=== PATIENT | female | born 1960 | race Two or more races ===

== ENCOUNTER → 2024-06-12 | Outpatient (CLI) | payer MEDICARE, MEDICAID, SELFPAY ==
[2024-06-12 17:54] LABS: HCG Qualitative,Urine Negative
[2024-06-12 18:06] LABS: Anion Gap 8 (7-16); BUN/Creatinine Ratio 25 Ratio (12-20); Blood Urea Nitrogen 20 mg/dL (9-23); Calcium 10.2 mg/dL (8.3-10.6); Carbon Dioxide 27.5 mMol/L (20.0-31.0); Chloride 102 mMol/L (98-107); Creatinine (Component) 0.8 mg/dL (0.6-1.3); Glucose 117 mg/dL (74-106); Osmolality,Calculated 277 (275-295); Potassium 3.7 mMol/L (3.4-5.1); Sodium 137 mMol/L (136-145); eGFR > 60 See Note
== END | disposition home or self-care (01) ==
LOC: COPL 16:17
PROVIDERS: PCP Physician Assistant; Referring Provider Physician Assistant; Visit Provider Physician Assistant
DX: Z32.00 Encounter for pregnancy test, result unknown (principal)
CPT/HCPCS: 36415; 80048; 81025

== ENCOUNTER 2024-07-11 06:30 | Day surgery (SDC) | payer MEDICARE, MEDICAID, SELFPAY ==
[2024-07-11] VITALS (11 sets, daily range): BP systolic 128–199; BP diastolic 61–86; PULSE 50–67; RESP 11–22; TEMP 36.2–36.8; O2SAT 93–99; BMI 25.9
[2024-07-11] MEDS: fentaNYL CIT INJ 50 mCg/ML AMP 2ML (ASD USE ONLY) IV (07:41)
[2024-07-11] MEDS: DiphenhydrAMINE INJ 50 MG/ML VIAL 25 MG IV (07:41)
[2024-07-11] MEDS: MIDAZOLAM INJ 1 MG/ML VIAL 2 ML (ASD USE ONLY) 2 MG IV (07:42)
== END 2024-07-11 08:30 | disposition home or self-care (01) ==
PROVIDERS: PCP Physician Assistant; Referring Provider Surgery; Visit Provider Surgery
PROC: 0DBE8ZX Excision of Large Intestine, Via Natural or Artificial Opening Endoscopic, Diagnostic (ICD-10-PCS; CPT 45380; principal; 2024-07-11 07:30)
DX: K64.1 Second degree hemorrhoids (principal); K57.31 Diverticulosis of large intestine without perforation or abscess with bleeding
CPT/HCPCS: 45378; J1200; J2250; J3010

== ENCOUNTER 2024-08-09 07:55 | Day surgery (SDC) | payer MEDICARE, MEDICAID, SELFPAY ==
--- NOTE | 2024-08-08 07:00 | EKG_ITS ---
[facility] Test Date: 2024-08-08 Pat Name: AYSE BROWN Department: Room: - Gender: Female Reception Specialist: RT STUDENT : 1960 Requested By: Indu Sanchez Order Number: [id number] Reading MD: Indu Sanchez Measurements Intervals Burns Rate: 56 P: -35 UT: 196 QRS: 23 QRSD: 90 T: 22 QT: 419 QTc: 407 Interpretive Statements SINUS BRADYCARDIA Compared to ECG 07/08/2020 15:51:47 Sinus rhythm no longer present /store/S0/[id number].pdf
[2024-08-08 07:19] VITALS: BMI 25.7
[2024-08-08 08:52] LABS: Basophils # (Auto) 0.1 Thou/mm3 (0.0-0.2); Basophils % (Auto) 2 % (0-2.5); Eosinophils # (Auto) 0.3 Thou/mm3 (0.0-0.5); Eosinophils % (Auto) 4 % (0-10); Hematocrit 43.1 % (36.0-46.0); Hemoglobin 14.4 g/dL (12.0-16.0); Immature Granulocytes % (Auto) 1 % (0-0); Immature Granulocytes Auto 0.05 Thou/mm3 (0.00-0.00); Lymphocytes # (Auto) 2.9 Thou/mm3 (1.0-4.8); Lymphocytes % (Auto) 38 % (10-50); Mean Corpuscular HGB Conc 33.4 g/dl (31.0-37.0); Mean Corpuscular Hemoglobin 28.3 pg (25.0-35.0); Mean Corpuscular Volume 85 fL (80-100); Monocytes # (Auto) 0.8 Thou/mm3 (0.0-0.8); Monocytes % (Auto) 11 % (0-12); Neutrophils # (Auto) 3.5 Thou/mm3 (1.8-7.7); Neutrophils % (Auto) 46 % (37-80); Nucleated Red Blood Cell % 0 /100 WBC (0); Platelet Count 260 Thou/mm3 (140-440); RDW Standard Deviation 44.2 fL (36.4-46.3); Red Blood Count 5.08 Miln/mm3 (4.00-5.20); White Blood Count 7.7 Thou/mm3 (3.6-11.0)
[2024-08-08 09:06] LABS: Alanine Aminotransferase 14 U/L (10-49); Albumin, Serum 4.9 gm/dL (3.4-4.8); Alkaline Phosphatase 76 U/L (46-116); Anion Gap 6 (7-16); Aspartate Amino Transferase 12 U/L (0-34); BUN/Creatinine Ratio 16 Ratio (12-20); Bilirubin,Total 0.5 mg/dL (0.3-1.2); Blood Urea Nitrogen 14 mg/dL (9-23); Calcium 9.9 mg/dL (8.3-10.6); Calcium (Corrected) 9.9 mg/dL (8.5-10.1); Carbon Dioxide 32.5 mMol/L (20.0-31.0); Chloride 102 mMol/L (98-107); Creatinine (Component) 0.9 mg/dL (0.6-1.3); Estimated Creatinine Clearance 62.1 mL/min (>60); Globulin 2.4 gm/dL (2.3-3.5); Glucose 148 mg/dL (74-106); Osmolality,Calculated 282 (275-295); Sodium 140 mMol/L (136-145); Total Protein 7.3 gm/dL (5.7-8.2); eGFR > 60 See Note
--- NOTE | 2024-08-08 14:43 | SUR.PREOP ---
Pt notified to come in at 0800 tomorrow for surgery.
--- NOTE | 2024-08-08 14:58 | SUR.PREOP ---
Cardiac records reviewed with Dr Vergara.
[2024-08-09] VITALS (7 sets, daily range): BP systolic 101–129; BP diastolic 40–58; PULSE 48–63; RESP 12–18; TEMP 36.2–36.3; O2SAT 95–99; BMI 25.6
--- NOTE | 2024-08-09 09:47 | ESOP_ITS ---
Date of Procedure 08/09/24 Pre Op Diagnosis Incarcerated umbilical hernia Post Op Diagnosis Incarcerated umbilical hernia Procedure Primary repair of incarcerated umbilical hernia Findings 1 cm umbilical hernia defect with incarcerated omentum Procedure Description Patient brought into the operating room in supine position. After administr ation of general endotracheal anesthesia, patient's abdomen prepped and draped in standard surgical manner. After administration of local anesthesia 3 cm semicircular incision was made below the umbilicus and dissection was deepened into soft tissue. The umbilicus was detached from anterior abdominal fascia. The hernia sac was identified and circumferentially dissected off surrounding tissue. The hernia sac was opened, the contents were incarcerated omentum was reduced. The hernia sac was excised. The defect was closed primarily with interrupted sutures using 0 Prolene. The umbilicus was reattached into anterior abdominal fascia. Soft tissue reapproximated with interrupted sutures using 2-0 Vicryl and the incision was closed with 4 Monocryl in subcuticular fashion. Dermabond applied. Patient tolerated the procedure well. She was extubated, breathing spontaneously and without difficulty and was transferred to postanesthesia care in stable condition. Instruments, needles and sponge counts were reported to be correct x 2. Anesthesia GETA and local Pathology / specimen Other (Hernia sac) Estimated Blood Loss 2 Condition Stable Disposition PACU Surgeon Indu Sanchez MD Surgical Staff Operation Date: 08/09/24 10:15 Case Staff Anesthesiologist: Thomas Corley RN First Assistant: Sofie Lee
--- NOTE | 2024-08-09 10:08 | SUR.PHASEI ---
pt received from OR in recovery bay 5. pt obtunded, breathing unlabored on 8l oxymask, oral airway in place. v/s stable. pt dressing to abd dermabond x1 cdi. report received from Dr. Corley and Delicia SHABAZZ.
--- NOTE | 2024-08-09 10:30 | SUR.PHASEI ---
pt able to tolerate oral fluids without difficulty swallowing or nausea/vomiting.
[2024-08-09] MEDS: ACETAMINOPHEN IVPB 1,000 MG/100 ML VIAL 250 MG IV (10:34)
--- NOTE | 2024-08-09 11:10 | SUR.PHASEII ---
pt awake and alert, breathing unlabored on room air. v/s stable. pt dressing to abd dermabond x1 cdi. pt able to ambulate to wheelchair with steady gait. d/c instructions given with sister in room, all questions answered. pt d/c via wheelchair with all belongings.
== END 2024-08-09 11:10 | disposition home or self-care (01) ==
PROVIDERS: Anesthesiology; PCP Physician Assistant; Referring Provider Surgery; Visit Provider Surgery
PROC: (CPT 49592; principal; 2024-08-09 10:00)
DX: K42.0 Umbilical hernia with obstruction, without gangrene (principal); Z01.810 Encounter for preprocedural cardiovascular examination
CPT/HCPCS: 49592; 36415; 80053; 85025; 93005; A4217; A4649; J0131; J0690; J1100; J1885; J2250; J2405; J2704; J3010

== ENCOUNTER 2025-02-27 06:35 | Emergency (ER) | payer MEDICARE, MEDICAID, SELFPAY ==
[2025-02-27] VITALS (7 sets, daily range): BP systolic 134–167; BP diastolic 55–88; PULSE 50–78; RESP 14–18; TEMP 36.4–36.9; O2SAT 98–100; BMI 25.0
--- NOTE | 2025-02-27 06:37 | EKG_ITS ---
[facility] Test Date: 2025-02-27 Pat Name: AYSE BROWN Department: Room: - Gender: Female Mba Intern: : 1960 Requested By: ED Temporary Provider Order Number: [id number] Reading MD: ED Temporary Provider Measurements Intervals Bixby Rate: 62 P: 42 RI: 259 QRS: 18 QRSD: 85 T: 13 QT: 392 QTc: 400 Interpretive Statements SINUS RHYTHM WITH FIRST DEGREE AV BLOCK LOW QRS VOLTAGE IN PRECORDIAL LEADS [QRS DEFLECTION < 1.0 mV IN CHEST LEADS] Compared to ECG 08/08/2024 07:54:58 First degree AV block now present Low QRS voltage now present Sinus bradycardia no longer present /store/S0/[id number]/ecg/[id number].pdf
--- NOTE | 2025-02-27 06:40 | XR_ITS ---
Examination: PA lateral chest 2 views TECHNIQUE: Upright PA lateral chest 2 views Date and time: February 27, 2025 0718 hours Comparison July 08, 2020 INDICATIONS: Acute chest pain today. FINDINGS: Normal heart size No pneumonia or pulmonary edema. Moderate osteopenia IMPRESSION: No pneumonia or pulmonary edema.
--- NOTE | 2025-02-27 06:40 | EDRME_ITS ---
Rapid Medical Screening Exam RME Arrival date/time: 02/27/25 06:35 64-year-old female with a history of type 2 diabetes, hypertension presents to the emergency room with a chief complaint of 10 out of 10 sternal chest pain x 1 hour. I have greeted and performed a focused initial assessment of this patient. A com prehensive ED assessment and evaluation of the patient, analysis of all test results, and completion of the medical decision making process will be conducted by additional ED providers. Chief Complaint: Chest Pain Vital signs: Vital Signs Temperature 97.5 F 02/27/25 06:39 Pulse Rate 78 02/27/25 06:39 Respiratory Rate 18 02/27/25 06:39 Blood Pressure 159/88 H 02/27/25 06:39 Pulse Oximetry (%) 100 02/27/25 06:39 Oxygen Delivery Method Room Air 02/27/25 06:39 Vital signs reviewed by provider: Yes
[2025-02-27 07:28] LABS: Basophils # (Auto) 0.1 Thou/mm3 (0.0-0.2); Basophils % (Auto) 1 % (0-2.5); Eosinophils # (Auto) 0.3 Thou/mm3 (0.0-0.5); Eosinophils % (Auto) 4 % (0-10); Hematocrit 42.5 % (36.0-46.0); Hemoglobin 14.0 g/dL (12.0-16.0); Immature Granulocytes Auto 0.02 Thou/mm3 (0.00-0.00); Lymphocytes # (Auto) 3.3 Thou/mm3 (1.0-4.8); Lymphocytes % (Auto) 41 % (10-50); Mean Corpuscular HGB Conc 32.9 g/dl (31.0-37.0); Mean Corpuscular Hemoglobin 29.4 pg (25.0-35.0); Mean Corpuscular Volume 89 fL (80-100); Monocytes # (Auto) 0.8 Thou/mm3 (0.0-0.8); Monocytes % (Auto) 10 % (0-12); Neutrophils # (Auto) 3.5 Thou/mm3 (1.8-7.7); Neutrophils % (Auto) 44 % (37-80); Nucleated Red Blood Cell # 0.00 Thou/mm3 (0.00-0.00); Nucleated Red Blood Cell % 0 /100 WBC (0); Platelet Count 198 Thou/mm3 (140-440); RDW Standard Deviation 43.1 fL (36.4-46.3); Red Blood Count 4.76 Miln/mm3 (4.00-5.20); White Blood Count 8.0 Thou/mm3 (3.6-11.0)
[2025-02-27 07:43] LABS: B-Type Natriuretic Peptide < 20 pg/mL (0-100)
[2025-02-27 07:44] LABS: Alanine Aminotransferase 10 U/L (10-49); Albumin, Serum 4.3 gm/dL (3.4-4.8); Albumin/Globulin Ratio 1.8 (1.2-2.2); Alkaline Phosphatase 64 U/L (46-116); Anion Gap 11 (7-16); Aspartate Amino Transferase 12 U/L (0-34); BUN/Creatinine Ratio 14 Ratio (12-20); Bilirubin,Total 0.4 mg/dL (0.3-1.2); Blood Urea Nitrogen 11 mg/dL (9-23); Calcium 9.2 mg/dL (8.3-10.6); Calcium (Corrected) 9.2 mg/dL (8.5-10.1); Carbon Dioxide 26.4 mMol/L (20.0-31.0); Chloride 105 mMol/L (98-107); Creatinine (Component) 0.8 mg/dL (0.6-1.3); Estimated Creatinine Clearance 63.9 mL/min (>60); Globulin 2.4 gm/dL (2.3-3.5); Glucose 163 mg/dL (74-106); INR 0.9 (0.9-1.3); Magnesium 1.7 mg/dL (1.6-2.6); Osmolality,Calculated 286 (275-295); Partial Thromboplastin Time 25.9 Seconds (22.0-36.0); Potassium 3.2 mMol/L (3.4-5.1); Prothrombin Time 10.3 Seconds (9.0-12.2); Sodium 142 mMol/L (136-145); Total Protein 6.7 gm/dL (5.7-8.2); Troponin I < 0.020 ng/mL (0.0-0.045); eGFR > 60 See Note
[2025-02-27 07:45] LABS: Collection Type, Urine Clean Catch
--- NOTE | 2025-02-27 07:47 | PC.NURSE ---
PT ASSESSED, PT JUST CAME BACK FROM XR, PT LAYING DOWN IN BED AWAKE, STATES CHEST PAIN AT 8/10, BED RAIL X2 BED LOW LOCKED CALL LIGHT WITHIN REACH
[2025-02-27 07:56] LABS: Bilirubin,Urine Negative (Negative); Blood,Urine Negative (Negative); Clarity,Urine Clear (Clear/Hazy); Color,Urine Lt-Yellow (Lt Yel-Yel); Glucose, Urine 4+ (Negative); Ketones,Urine Negative (Negative); Leukocyte Esterase,Urine Negative (Negative); Nitrite,Urine Negative (Negative); PH,Urine 6.0 (5.0-7.0); Protein,Urine Negative (Neg - Trace); RBC,Urine 1 /hpf (0-3); Specific Gravity,Urine 1.043 (1.001-1.035); Squamous Epithelial Cell,Urine < 1 /hpf (0-5); Urobilinogen,Urine Negative mg/dL (0.0-1.0); WBC,Urine 1 /hpf (0-5)
--- NOTE | 2025-02-27 09:16 | PD.EDCHEST ---
ED Chest Pain RME/HPI General Chief Complaint: Chest Pain Stated Complaint: CHEST PAIN,SOB Time Seen by Provider: 02/27/25 07:34 Arrival date/time: 02/27/25 06:35 RME / HPI RME / HPI narrative: 02/27/25 06:35 64-year-old female with a history of type 2 diabetes, hypertension presents to the emergency room with a chief complaint of 10 out of 10 sternal chest pain x 1 hour. I have greeted and performed a focused initial assessment of this patient. A comprehensive ED assessment and evaluation of the patient, analysis of all test results, and completion of the medical decision making process will be conducted by additional ED providers. DR. 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 Described as a heart burn sensation accompanied by feeling like something is stuck there , rating 10/10 in severity. States she chugged a soda with no change. Reportedly had experienced similar chest pain once before several years ago that had improved with medications given in the hospital; does not recall what she was diagnosed with. No other associated symptoms reported. Denies fever, chills, sweating. Denies nausea, vomiting, diarrhea, constipation. Denies dysuria, urinary frequency and urgency. Director Client Services: Dr. Conrad Related Data Home Medications ?Medication ?Instructions ?Recorded ?Confirmed levothyroxine 100 mcg tablet 100 mcg PO ACBR #0 tabs 08/05/16 08/09/24 benazepril 20 1 tab PO QDAY 07/11/24 08/09/24 mg-hydrochlorothiazide 12.5 mg tablet empagliflozin 25 mg tablet 25 mg PO QDAY 07/11/24 08/08/24 (Jardiance) hydrocodone 10 mg-acetaminophen 1 tab PO TID PRN Pain 07/11/24 08/08/24 325 mg tablet omeprazole 40 mg capsule,delayed 40 mg PO QDAY 07/11/24 08/08/24 release atenolol 50 mg tablet 50 mg PO QDAY 08/08/24 08/09/24 Previous Rx's ?Medication ?Instructions ?Recorded docusate sodium 100 mg capsule 100 mg PO BID #40 caps 08/09/24 (Colace) hydrocodone 5 mg-acetaminophen 325 1 tab PO Q6H PRN pain (scale score 08/09/24 mg tablet 7-10) #20 tabs ibuprofen 600 mg tablet 600 mg PO Q8H PRN pain (scale 08/09/24 score 4-6) #15 tabs Allergies Allergy/AdvReac Type Severity Reaction Status Date / Time No Known Allergies Allergy Verified 02/27/25 06:36 Review of Systems Review of Systems Systems Reviewed: All systems reviewed, normal except as documented Past Medical History Past Medical History CARDIAC: Positive Cardiac Disorders, Cardiac Arrhythmia (Bradycardia), Hypertension and Varicose Veins (had surgery) GASTROINTESTINAL: Positive Hemorrhoids REPRODUCTIVE: Positive Previous Pregnancies MUSCULOSKELETAL: Positive Musculoskeletal Disorders, Arthritis (BILATERAL HANDS) and Carpal Tunnel Syndrome (bilateral) ENDOCRINE: Positive Endocrine Disorders and Diabetes Mellitus Type 2 OTHER HISTORY: Positive Hospitalization (surgery), Shingles and Chicken Pox Family History FAMILY HISTORY: Positive Family Surgery; Negative Family Psychiatric Problems, Family Respiratory Disorders, Family Cardiac Disorders, Family Gastrointestinal Problems, Family Cancer or Family Anesthesia Reaction Surgical History SURGICAL: Positive Joint Replacement and Hysterectomy; Negative Cardiac Surgery or Ear Surgery Social History SMOKING STATUS: Never smoker ED Exam Narrative Physical exam: GENERAL APPEARANCE: alert and oriented x 4, well-developed, well-nourished, no acute distress HEENT: Normocephalic, atraumatic; pupils equal, round, reactive to light; EOMI; mucous membranes pink, moist; oropharynx clear NECK: Supple LUNGS: CTABL; no wheezes, no rales, no rhonchi HEART: Regular rate, regular rhythm; normal S1, S2; no murmurs ABDOMEN: non distended; normal BS; soft, no tenderness, no guarding, no rebound; no masses, no organomegaly, no hernia BACK: no CVA tenderness EXTREMITIES: atraumatic; no edema NEUROLOGIC: awake; alert and oriented x4; cranial nerves II-XII grossly intact; no focal sensory or motor deficits PSYCHIATRIC: appropriate mood and affect SKIN: warm, dry, normal color; no rashes Course Course Course Narrative: chest xray ordered to help determine etiology of chest pain. Quality Measures none Orders Category Date Time Status Neck Band Setter Q4H START 00 Care 02/27/25 10:11 Completed EKG (ED ONLY) *Do not use* NOW Care 02/27/25 06:38 Completed Insert IV NOW Care 02/27/25 10:25 Completed EKG (ED Only) Stat Exams 02/27/25 06:37 Draft XR chest 2V Stat Exams 02/27/25 06:40 Completed B-Type Natriuretic Peptide Stat Lab 02/27/25 07:05 Completed CBC Stat Lab 02/27/25 07:05 Completed Comprehensive Metabolic Panel Stat Lab 02/27/25 07:05 Completed Magnesium Stat Lab 02/27/25 07:05 Completed Partial Thromboplastin Time Stat Lab 02/27/25 07:05 Completed Prothrombin Time with INR Stat Lab 02/27/25 07:05 Completed Troponin I Stat Lab 02/27/25 07:05 Completed Troponin I Stat Lab 02/27/25 10:39 Completed Urinalysis Stat Lab 02/27/25 07:40 Completed Nitroglycerin [Nitrostat 1/150] Med 02/27/25 09:19 Discontinued 0.4 mg SL X1 ONE Reevaluation(s) Reevaluation #1: Patient remains clinically stable throughout the emergency department visit. We reviewed all the results, analysis, and treatment plans. Patient is amenable to discharge. Strict return precautions were outlined. Patient was discharged in stable condition. Vital Signs Vital signs: Vital Signs Temperature 97.5 F 02/27/25 06:39 Pulse Rate 78 02/27/25 06:39 Respiratory Rate 18 02/27/25 06:39 Blood Pressure 159/88 H 02/27/25 06:39 Pulse Oximetry (%) 100 02/27/25 06:39 Oxygen Delivery Method Room Air 02/27/25 06:39 Pulse ox is 100% on room air which is adequate. Chest Pain MDM Narrative MDM Narrative:: Jesica Saavedra am scribing for and in the presence of Dr. Rodriguez. Patient data External records reviewed:: [facility] previous records (I reviewed ED visit on 09/11/2023 ) Clinical information provided by:: patient Social determinants that could affect healthcare access:: none Patient has the following chronic illnesses:: HTN, DM How is presenting disease/condition affected by chronic disease/condition?: exacerbated by Evaluation data The following diagnostics were reviewed and interpreted by me:: lab results, radiology exam(s) and EKG tracing(s) (Sinus rhythm with first degree AV block, rate 62, no acute ischemia. ) Lab and/or radiology exams considered but not ordered:: None Interpretation Summary: Ordering Physician: Bandar Roberts Date of Service: 02/27/25 Procedure(s): XR chest 2V Accession Number(s): [id number] cc: Bandar Roberts; Wayne Mueller MD; Marjorie Franco PA-C~ Examination: PA lateral chest 2 views TECHNIQUE: Upright PA lateral chest 2 views Date and time: February 27, 2025 0718 hours Comparison July 08, 2020 INDICATIONS: Acute chest pain today. FINDINGS: Normal heart size No pneumonia or pulmonary edema. Moderate osteopenia IMPRESSION: No pneumonia or pulmonary edema. Dictated By: Wayne Mueller MD Signed By: <Electronically signed by Wayne Mueller MD in OV> 02/27/25 0753 Medications / Prescriptions Medications or Prescriptions considered but not ordered:: None Medication administrations:: Medication Administration History Discontinued Medications Nitroglycerin (Nitroglycerin 0.4 Mg Subl Btl #25) 0.4 mg SL X1 ONE Stop: 02/27/25 09:20 Last Admin: 02/27/25 10:26 Dose: 0.4 mg Documented By: VICKY See above Consultations Consultation(s) initiated? (list below): No Diagnosis Chest Pain Differential Diagnosis: stable angina, unstable angina pectoris, atypical chest pain, st elevation myocardial infarction, costochondritis, chest pain and biliary colic Most likely diagnosis given after review of the tests above:: Chest pain Admission Indicated Admission indicated?: not indicated Admission Request Was there a request for admission?: No Disposition Plan Disposition Plan: Discharge Discharge Attestation Discharge Attestation: The patient and all family members were given an opportunity to ask questions and understood the discharge instructions. Discharge instructions specifically effects, indications for sooner follow up or return to the emergency department, and the expected course of current diagnosis. Patient condition: Stable Discharge Plan Plan Patient Disposition: HOME (Self Care) Prescriptions/Referrals Prescriptions/Med Rec: No Action levothyroxine 100 mcg Tablet 100 mcg PO ACBR Qty: 0 benazepril-hydrochlorothiazide 20-12.5 mg Tablet 1 tab PO QDAY hydrocodone-acetaminophen 10-325 mg tablet 1 tab PO TID PRN (Reason: Pain) omeprazole 40 mg capsule,delayed release(DR/EC) 40 mg PO QDAY Jardiance 25 mg tablet 25 mg PO QDAY Patient Comments: TAKE 1 TABLET BY MOUTH DAILY FOR DIABETES atenolol 50 mg Tablet 50 mg PO QDAY docusate sodium [Colace] 100 mg capsule 100 mg PO BID Qty: 40 0RF ibuprofen 600 mg tablet 600 mg PO Q8H PRN (Reason: pain (scale score 4-6)) Qty: 15 0RF hydrocodone-acetaminophen 5-325 mg tablet 1 tab PO Q6H MDD 4 PRN (Reason: pain (scale score 7-10)) Qty: 20 0RF Referrals: Marjorie Franco PA-C [Primary Care Provider] - In 1 week Problem List Clinical Impression: Chest pain Patient/Caregiver Discharge Instructions Education Materials: ED Chest Pain, Noncardiac Print Language: Serbian Stand Alone Forms: [employer] Award Info., Patient Portal Info Letter
--- NOTE | 2025-02-27 09:19 | PC.NURSE ---
PT IN BED WITH DR FAIR. DOCTOR TALKED TO HER ABOUT HER CONDITION AND THE PLAN OF CARE.
[2025-02-27] MEDS: NITROGLYCERIN 0.4 MG SUBL BTL #25 SL (10:26)
--- NOTE | 2025-02-27 10:32 | PC.NURSE ---
CALLED LAB TO REMIND THEM TO PULL THE SECOND TROPONIN LEVEL
[2025-02-27 11:06] LABS: Troponin I < 0.020 ng/mL (0.0-0.045)
== END 2025-02-27 12:54 | disposition home or self-care (01) ==
PROVIDERS: Nurse Practitioner Family; Emergency Provider Emergency Medicine; PCP Physician Assistant
DX: R07.9 Chest pain, unspecified (principal); I44.0 Atrioventricular block, first degree; I10 Essential (primary) hypertension
CPT/HCPCS: 36415; 71046; 80053; 81001; 83735; 83880; 84484; 85025; 85610; 85730; 93005; 99284; A9270

== ENCOUNTER → 2025-03-27 | Outpatient (CLI) | payer MEDICARE, MEDICAID, SELFPAY ==
--- NOTE | 2025-03-27 11:45 | XR_ITS ---
Examination: Screening digital mammography, bilateral Computer aided detection 3-D breast Tomosynthesis, bilateral Date and time of exam: 03/27/2025, 10:44 AM Comparisons: November 2017 through April 2022 Indications: Screening Technique: Nonmagnified MLO, CC views of the breasts to been obtained, reconstructed from 3-D Tomosynthesis images. R2 computer aided detection program utilized for evaluation of suspicious masses and/or abnormal calcifications. 3-D Tomosynthesis images obtained. Technologist: Findings: There are scattered areas of fibroglandular density. No evidence of abnormal masses or suspicious calcifications. Impression: BI-RADS category 1: Negative findings (within normal) Recommend 1 year follow-up mammogram
[2025-03-27 11:53] LABS: Glucose Estimated Average 166 mg/dL (80-131); Hemoglobin A1C 7.4 % Hgb (4.8-6.0)
[2025-03-27 12:02] LABS: Anion Gap 9 (7-16); BUN/Creatinine Ratio 20 Ratio (12-20); Blood Urea Nitrogen 16 mg/dL (9-23); Calcium 10.2 mg/dL (8.3-10.6); Carbon Dioxide 28.1 mMol/L (20.0-31.0); Chloride 103 mMol/L (98-107); Creatinine (Component) 0.8 mg/dL (0.6-1.3); Glucose 160 mg/dL (74-106); Osmolality,Calculated 283 (275-295); Potassium 4.2 mMol/L (3.4-5.1); Sodium 140 mMol/L (136-145); eGFR > 60 See Note
== END | disposition home or self-care (01) ==
PROVIDERS: PCP Physician Assistant; Referring Provider Physician Assistant; Visit Provider Physician Assistant
DX: Z12.31 Encounter for screening mammogram for malignant neoplasm of breast (principal); R92.313 Mammographic fatty tissue density, bilateral breasts; I10 Essential (primary) hypertension; E11.65 Type 2 diabetes mellitus with hyperglycemia
CPT/HCPCS: 36415; 77063; 77067; 80048; 82570; 83036

== ENCOUNTER → 2025-03-28 | Outpatient (CLI) | payer MEDICARE, MEDICAID, SELFPAY ==
[2025-03-28 08:57] LABS: Creatinine MALB Rnd Ur 85 mg/dL (30-125); Microalbumin, Random Urine < 3 mg/L (0-300)
== END | disposition home or self-care (01) ==
LOC: COPL 07:47 → SLDO 07:48
PROVIDERS: PCP Physician Assistant; Referring Provider Physician Assistant; Visit Provider Physician Assistant
DX: I10 Essential (primary) hypertension (principal); E11.65 Type 2 diabetes mellitus with hyperglycemia
CPT/HCPCS: 82043; 82570